=== PATIENT | male | born 1995 | race Hispanic/Latino ===

== ENCOUNTER 2020-10-25 08:35 | Emergency (ER) | payer SELFPAY ==
[2020-10-25] MEDS ORDERED: AMOXICILLIN875 MG PO (08:54)
[2020-10-25] MEDS ORDERED: FLOXIN OTIC0.3 % AD (08:54)
[2020-10-25 09:04] VITALS: BP 110/70
== END 2020-10-25 09:34 | disposition home or self-care (01) | DRG 153 ==
LOC: ED 08:35
DX: H66.91 Otitis media, unspecified, right ear (principal)

== ENCOUNTER 2022-07-11 08:51 | Emergency (ER) | payer OTHER ==
[~2022-07-11] VITALS: Ht 167.6 cm; Wt 97.0 kg
[2022-07-11] VITALS (7 sets, daily range): BP systolic 114–130; BP diastolic 69–88
[~2022-07-11 08:51] MED LIST: AMOXICILLIN875 MG PO; FLOXIN OTIC0.3 % AD
[2022-07-11 09:40] LABS: BASO% 0.3 % (0-3); EOS% 1.5 % (0-8); HEMATOCRIT 45.6 % (39.0-50.0); HEMOGLOBIN 15.5 g/dl (14.0-18.0); IMMATURE GRANULOCYTES 0.4 % (0.0-5.0); MEAN CORPUSCULAR HGB 32.3 pG CALC (26.0-32.0); MONO% 5.7 % (2-13); NEUT# 4.41 thou/uL (1.82-7.42); NEUT% 61.1 % (42-76); RED BLOOD COUNT 4.8 mill/uL (4.70-6.10); RED CELL DISTRI WIDTH 12.3 % (11.5-15.5)
[2022-07-11 09:53] LABS: ALKALINE PHOSPHATASE 79 u/l (38-126); ANION GAP 16 (6-22 (CALC)); BILIRUBIN, TOTAL 0.4 mg/dL (0.2-1.3); BUN 12 mg/dL (9-20); BUN/CREATININE RATIO 18 (12-20 (CALC)); CARBON DIOXIDE 24 mmol/l (22-30); CHLORIDE 104 mmol/l (95-108); CREATININE 0.7 mg/dL (0.7-1.3); GFR FOR AFR.AMER. > 60 ML/MIN (>=60 (CALC)); GFR OTHER RACES > 60 ML/MIN (>=60 (CALC)); POTASSIUM 4.1 mmol/l (3.5-5.1); SGOT/AST 81 u/l (17-59); SODIUM 139 mmol/l (137-146); TOTAL PROTEIN 8.2 g/dL (6.3-8.2)
== END 2022-07-11 12:36 | disposition home or self-care (01) | DRG 605 ==
LOC: ED 08:51
PROVIDERS: Family Medicine
DX: S20.212A Contusion of left front wall of thorax, initial encounter (principal); V49.40XA Driver injured in collision with unspecified motor vehicles in traffic accident, initial encounter
CPT/HCPCS: Q9967